=== PATIENT | female | born 1935 | race Caucasian/White ===

== ENCOUNTER 2017-10-10 14:20 | Outpatient (CLI) | payer MEDICARE, OTHER ==
[2016-05-11 07:31] VITALS: BP 129/73
== END 2017-10-10 14:21 ==
LOC: POD 14:20
PROVIDERS: ATTEND Podiatrist
DX: B35.1 Tinea unguium (principal); M79.674 Pain in right toe(s); M79.675 Pain in left toe(s)
CPT/HCPCS: G0463

== ENCOUNTER 2018-01-19 13:13 | Outpatient (CLI) | payer MEDICARE, OTHER ==
[2016-05-11 07:31] VITALS: BP 129/73
== END 2018-01-19 13:14 ==
LOC: POD 13:13
PROVIDERS: ATTEND Podiatrist
DX: B35.1 Tinea unguium (principal); M79.674 Pain in right toe(s); M79.675 Pain in left toe(s)
CPT/HCPCS: 11721; G0463

== ENCOUNTER 2018-11-15 10:42 | Outpatient (CLI) | payer MEDICARE, OTHER ==
[2016-05-11 07:31] VITALS: BP 129/73
--- NOTE | 2018-11-15 11:56 | Diagnostic Imaging Report ---
<p>Your browser does not support iframes.</p> SANTA HUTCHINS [facility] [address] [facility] [address] [place] [address]. [id number] Report Submission Date: Nov 15, 2018 11:30:56 AM FOSTER CARE CASE MANAGER Patient Study Name: JUAN DAVID MOLINA Date: Nov 15, 2018 10:55:44 AM F[employer]ER C[employer] CASE MANAGER Modality Type: DX Gender: F Description: RT HIP 2VIEW COMPLETE : 35 Institution: [facility] Physician: SANTA HUTCHINS Examination: Plain film pelvis/right hip History: Pt fell going to the mail box last week Comparison exams: None provided Findings: 2 views of the pelvis/right hip demonstrates diffuse osteopenia. Right hip fixation hardware. No displaced fracture lucency involving the right hip articulation. Pubic symphysis degenerative changes. Sacroiliac joint and lumbar spine degenerative changes. Vascular calcifications. Impression: Diffuse osteopenia and articular degenerative changes. Fracture fixation hardware involving the right hip. No acute appearing cortical abnormality. Electronically signed on Nov 15, 2018 11:30:56 AM FOSTER CARE CASE MANAGER by: Jj HALL
== END 2018-11-15 10:44 ==
LOC: RAD 10:42
PROVIDERS: ATTEND Family Medicine
DX: M85.851 Other specified disorders of bone density and structure, right thigh (principal); M24.151 Other articular cartilage disorders, right hip; M25.551 Pain in right hip
CPT/HCPCS: 73502

== ENCOUNTER 2018-11-21 13:40 | Outpatient (CLI) | payer MEDICARE, OTHER ==
[2016-05-11 07:31] VITALS: BP 129/73
--- NOTE | 2018-11-21 14:58 | Diagnostic Imaging Report ---
JIMY TUTTLE [facility] [address] [facility] [address] [place], [place]. [address] Report Submission Date: Nov 21, 2018 2:43:12 PM SUSTAINABILITY COORDINATOR Patient Study Name: JUAN DAVID MOLINA Date: Nov 21, 2018 1:54:18 PM SUSTAINABILITY COORDINATOR Modality Type: CT\SR Gender: F Description: CT PELVIS W/O CONTRAST : 35 Institution: [facility] Physician: JIMY TUTTLE Exam: CT pelvis without contrast. History: Follow-up right hip fracture. Axial images through the right hip are submitted along with sagittal and coronal reformatted images. An intramedullary device in the proximal right femur is noted. A healed right intertrochanteric fracture is noted. Mild narrowing, sclerosis and spurring of both hip joints are noted. Narrowing, sclerosis and spurring at the symphysis pubis is noted. No acute fracture of the pubis bones are noted. No other soft tissue abnormalities are identified. Impression: Status post ORIF proximal right femur fracture. Degenerative changes in both hip joints and at the symphysis pubis. No pubic bone fractures are identified. Electronically signed on Nov 21, 2018 2:43:12 PM SUSTAINABILITY COORDINATOR by: Luciano HALL
--- NOTE | 2018-11-21 17:00 | Diagnostic Imaging Report ---
JIMY TUTTLE [facility] [address] [facility] [address] [place] [address]. [id number] Report Submission Date: Nov 21, 2018 2:43:12 PM K 9 [employer] OFF[employer]ER Patient Study Name: JUAN DAVID MOLINA Date: Nov 21, 2018 1:54:18 PM K 9 [employer] Modality Type: CT\SR Gender: F Description: CT PELVIS W/O CONTRAST : 35 Institution: [facility] Physician: JIMY TUTTLE Exam: CT pelvis without contrast. History: Follow-up right hip fracture. Axial images through the right hip are submitted along with sagittal and coronal reformatted images. An intramedullary device in the proximal right femur is noted. A healed right intertrochanteric fracture is noted. Mild narrowing, sclerosis and spurring of both hip joints are noted. Narrowing, sclerosis and spurring at the symphysis pubis is noted. No acute fracture of the pubis bones are noted. No other soft tissue abnormalities are identified. Impression: Status post ORIF proximal right femur fracture. Degenerative changes in both hip joints and at the symphysis pubis. No pubic bone fractures are identified. Electronically signed on Nov 21, 2018 2:43:12 PM K [employer] OFF[employer] by: Luciano Ibarra Addendum: Upon further review of the axial images there appears to be subtle buckling of the inferior ramus of the right pubis bone not seen in the sagittal or coronal reformatted images. This is suggestive of an acute fracture of this structure. Addendum electronically signed by Luciano Ibarra on November 21, 2018 3:49:23 PM [facility]
== END 2018-11-21 13:42 ==
LOC: RAD 13:40
PROVIDERS: ATTEND Family Medicine
DX: M25.551 Pain in right hip (principal); Z98.890 Other specified postprocedural states; R93.7 Abnormal findings on diagnostic imaging of other parts of musculoskeletal system
CPT/HCPCS: 72192